=== PATIENT | male | born 1940 | race Caucasian/White ===

== ENCOUNTER 2022-12-20 09:03 | Emergency (ER) | payer MEDICARE, OTHER | END 2022-12-20 12:27 | disposition home or self-care (01) | LOC: CSHERS 09:03 | DX: S20.211A Contusion of right front wall of thorax, initial encounter (principal); E78.5 Hyperlipidemia, unspecified; I10 Essential (primary) hypertension; F17.210 Nicotine dependence, cigarettes, uncomplicated; X58.XXXA Exposure to other specified factors, initial encounter | CPT/HCPCS: 71046; 93005 ==